=== PATIENT | male | born 1965 | race African-American/Black ===

== ENCOUNTER 2016-06-22 15:47 | Emergency (ER) | payer OTHER ==
[~2016-06-22] VITALS: Ht 177.8 cm; Wt 86.2 kg
[~2016-06-22 15:47] MED LIST: HYDR-971 PO; NAPR550T PO; ORPH100T PO
[2016-06-22 16:06] VITALS: BP 170/105
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
[2016-06-22] MEDS ORDERED: CYCL10TA2 PO (17:01)
[2016-06-22] MEDS ORDERED: IBUPROFEN 800 MG TABLET. PO ONE (17:15)
[2016-06-22] MEDS ORDERED: CYCLOBENZAPRINE 10 MG TABLET. PO ONE (17:15)
--- NOTE | 2016-06-23 06:48 | EKG ---
[facility] [address] [place] [address] Test Date: 2016-06-22 Test Time: 16:14:31 Pat Name: KATHY BORGES Department: Room: Gender: M Toll Operator: : 1965 Requested By: JON ASHLEY Order Number: [id number] Reading MD: Lynda Jones Measurements Intervals [place] Rate: 73 P: 62 NC: 174 QRS: 43 QRSD: 96 T: 36 QT: 372 QTc: 413 Interpretive Statements SINUS RHYTHM NORMAL ECG RI6.01 No previous ECG available for comparison Electronically Signed On 06-23-2016 21:19:36 CDT by Lynda Jones
== END 2016-06-22 17:17 | disposition home or self-care (01) ==
LOC: ER 15:47
DX: S16.1XXA Strain of muscle, fascia and tendon at neck level, initial encounter (principal); R07.89 Other chest pain; M54.6 Pain in thoracic spine; M62.838 Other muscle spasm; V43.42XA Person boarding or alighting a car injured in collision with other type car, initial encounter; Y93.89 Activity, other specified; Y99.8 Other external cause status; Y92.488 Other paved roadways as the place of occurrence of the external cause
CPT/HCPCS: 71020; 72040; 93005; 99284-25

== ENCOUNTER 2017-01-29 08:39 | Emergency (ER) | payer OTHER ==
[~2017-01-29] VITALS: Ht 177.8 cm; Wt 86.2 kg
[~2017-01-29 08:39] MED LIST changes: +CYCL10TA2 PO; +NAPR-682 PO; -NAPR550T PO
--- NOTE | 2017-01-29 08:46 | PHYS DOC ---
Past Medical History Past Medical History: No Pertinent History Past Surgical History: Lumbar Laminectomy Alcohol Use: Occasionally Drug Use: None Adult General Chief Complaint Chief Complaint: CHEST PAIN HPI HPI Patient is a 51 year old male presenting to the emergency department for evaluation of chest pain that has been going on and on for approximately 2 weeks. Patient says it lasts for seconds at a time is sharp left-sided and can radiate towards his left scapula but is not associated with any nausea vomiting shortness of breath or diaphoresis. Pain can come at any time and has happened 2 times so far this morning and happened approximately 2 times last evening. He has exerted himself his usual and he says that this does not make his pain worse but he cannot think of anything that necessarily makes it worse or better possibly drinking alcohol makes it worse. He says that he has hypertension but no diabetes high cholesterol smoking history or family history of ischemic heart disease. Patient is in no obvious distress with normal vital signs. His heart score is equal to 2. Review of Systems Review of Systems Constitutional: Denies fever or chills [] Eyes: Denies change in visual acuity, redness, or eye pain [] HENT: Denies nasal congestion or sore throat [] Respiratory: Denies cough or shortness of breath [] Cardiovascular: + CP GI: Denies abdominal pain, nausea, vomiting, bloody stools or diarrhea [] : Denies dysuria or hematuria [] Musculoskeletal: Denies back pain or joint pain [] Integument: Denies rash or skin lesions [] Neurologic: Denies headache, focal weakness or sensory changes [] Current Medications Current Medications Current Medications Medications (Trade) Dose Ordered Sig/Michelle Start Time Stop Time Status Last Admin Dose Admin Aspirin (Ecotrin) 325 mg 1X ONCE 01/29/17 09:15 01/29/17 09:16 DC 01/29/17 09:09 325 MG Info (Do NOT chart on this entry -- for MONITORING) 1 each PRN DAILY PRN 01/29/17 10:15 01/29/17 11:57 DC Iohexol (Omnipaque 300 Mg/ml) 75 ml 1X ONCE 01/29/17 10:00 01/29/17 10:03 DC 01/29/17 10:19 75 ML Ketorolac Tromethamine (Toradol) 15 mg 1X ONCE 01/29/17 11:00 01/29/17 11:01 DC 01/29/17 11:15 15 MG Multi-Ingredient Mouthwash/Gargle (Gi Cocktail Single Dose) 15 ml 1X ONCE 01/29/17 11:00 01/29/17 11:01 DC 01/29/17 11:14 15 ML Allergies Allergies Allergies Coded Allergies Type Severity Reaction Last Updated Verified hydrocodone Allergy Intermediate Itching 01/29/17 Yes Physical Exam Physical Exam Constitutional: Well developed, well nourished, no acute distress, non-toxic appearance. [] HENT: Normocephalic, atraumatic, bilateral external ears normal, oropharynx moist, no oral exudates, nose normal. [] Eyes: PERRLA, EOMI, conjunctiva normal, no discharge. [] Neck: Normal range of motion, no tenderness, supple, no stridor. [] Cardiovascular:Heart rate regular rhythm, no murmur [] Lungs & Thorax: Bilateral breath sounds clear to auscultation [] Abdomen: Bowel sounds normal, soft, no tenderness, no masses, no pulsatile masses. [] Skin: Warm, dry, no erythema, no rash. [] Back: No tenderness, no CVA tenderness. [] Extremities: No tenderness, no cyanosis, no clubbing, ROM intact, no edema. [] Neurologic: Alert and oriented X 3, normal motor function, normal sensory function, no focal deficits noted. [] Current Patient Data Vital Signs Vital Signs Date Time Temp Pulse Resp B/P (MAP) Pulse Ox O2 Delivery O2 Flow Rate FiO2 01/29/17 11:13 67 16 137/85 (102) 100 Room Air 01/29/17 08:50 98.4 98.4 Lab Values Laboratory Tests Test 01/29/17 08:50 White Blood Count 4.8 x10^3/uL (4.0-11.0) Red Blood Count 4.79 x10^6/uL (4.30-5.70) Hemoglobin 13.7 g/dL (13.0-17.5) Hematocrit 41.7 % (39.0-53.0) Mean Corpuscular Volume 87 fL (79-100) Mean Corpuscular Hemoglobin 29 pg (25-35) Mean Corpuscular Hemoglobin Concent 33 g/dL (31-37) Red Cell Distribution Width 13.0 % (11.5-14.5) Platelet Count 249 x10^3/uL (140-400) Neutrophils (%) (Auto) 74 % (31-73) H Lymphocytes (%) (Auto) 18 % (24-48) L Monocytes (%) (Auto) 6 % (0-9) Eosinophils (%) (Auto) 2 % (0-3) Basophils (%) (Auto) 0 % (0-3) Neutrophils # (Auto) 3.5 x10^3uL (1.8-7.7) Lymphocytes # (Auto) 0.9 x10^3/uL (1.0-4.8) L Monocytes # (Auto) 0.3 x10^3/uL (0.0-1.1) Eosinophils # (Auto) 0.1 x10^3/uL (0.0-0.7) Basophils # (Auto) 0.0 x10^3/uL (0.0-0.2) Prothrombin Time 12.0 SEC (11.7-14.0) Prothrombin Time INR 0.9 (0.8-1.1) PTT 31 SEC (24-38) D-Dimer (Agustina) 0.90 ug/mlFEU (0.00-0.50) H Sodium Level 145 mmol/L (136-145) Potassium Level 3.4 mmol/L (3.5-5.1) L Chloride Level 104 mmol/L (98-107) Carbon Dioxide Level 31 mmol/L (21-32) Anion Gap 10 (6-14) Blood Urea Nitrogen 15 mg/dL (8-26) Creatinine 0.8 mg/dL (0.7-1.3) Estimated GFR (Cockcroft-Gault) 124.3 BUN/Creatinine Ratio 19 (6-20) Glucose Level 112 mg/dL (70-99) H Calcium Level 8.6 mg/dL (8.5-10.1) Magnesium Level 2.2 mg/dL (1.8-2.4) Total Bilirubin 0.6 mg/dL (0.2-1.0) Aspartate Amino Transferase (AST) 45 U/L (15-37) H Alanine Aminotransferase (ALT) 87 U/L (16-63) H Alkaline Phosphatase 108 U/L (46-116) Troponin I Quantitative < 0.017 ng/mL (0.000-0.055) TF-Qks-N-Type Natriuretic Peptide 8 pg/mL (0-124) Total Protein 7.2 g/dL (6.4-8.2) Albumin 4.1 g/dL (3.4-5.0) Albumin/Globulin Ratio 1.3 (1.0-1.7) Laboratory Tests 01/29/17 08:50 Laboratory Tests 01/29/17 08:50 EKG EKG Sinus rhythm at 74 beats per minutes with normal axis no obvious ST elevation or depression and normal T waves Radiology/Procedures Radiology/Procedures AP chest. History: Chest pain AP view was taken of the chest. Lungs are clear. Heart is normal in size without heart failure. There is no pleural effusion. Impression: 1. No acute chest disease. DICTATED and SIGNED BY: RADHA CHAMBERS MD DATE: 01/29/17 0936 One or more of the following individualized dose reduction techniques were utilized for this examination: 1. Automated exposure control 2. Adjustment of the mA and/or kV according to patient size 3. Use of iterative reconstruction technique CT arteriography of the chest with contrast. History: Chest pain CT arteriogram of the chest was done using 75 mL Omnipaque 300 contrast. There is no mediastinal adenopathy or pleural effusion. Visualized portions of the liver and spleen are normal. Adrenal glands are normal. Sagittal and coronal MIP images were reconstructed. The study is negative for evidence of a pulmonary embolus. The lungs are free of infiltrates or nodules. Impression: 1. No infiltrates or nodules noted. 2. Negative for evidence of a pulmonary embolus. DICTATED and SIGNED BY: RADHA CHAMBERS MD DATE: 01/29/17 1027 Course & Med Decision Making Course & Med Decision Making Patient with atypical chest pain however he does have some risk factors. Patient's heart score is equal to 2 and he is safe for discharge in my opinion and patient is agreeable to discharge as well. He was told about his incidental transaminitis and told to stop drinking. Pain did not come back after the Toradol and GI cocktail. 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 Patient aware and agreeable with plan for discharge and verbalized understanding of the need for short-term follow-up in the strict ED return precautions discussed as above. Dragon Disclaimer Dragon Disclaimer This electronic medical record was generated, in whole or in part, using a voice recognition dictation system. Departure Departure Impression: Primary Impression: Chest pain Additional Impression: Transaminitis Disposition: 01 HOME, SELF-CARE Condition: STABLE Referrals: CESAR ALVAREZ MD Patient Instructions: Chest Pain (Nonspecific) Additional Instructions: TAKE A FULL DOSE ASPIRIN DAILY. DO NOT EXERT YOURSELF. FOLLOW WITH A DOWEL MAKER OPAL AND COME BACK TO THE ED SOONER WITH ANY NEW OR WORSENING PAIN , SOA, OR OTHER GENERAL CONCERNS. Scripts Omeprazole Magnesium (PRILOSEC OTC) 20 Mg Tablet.dr 1 TAB PO DAILY, #30 TAB 0 Refills Prov: BRAEDEN REYNOLDS DO 01/29/17 Problem Qualifiers Primary Impression: Chest pain Chest pain type: unspecified Qualified Codes: R07.9 - Chest pain, unspecified BRAEDEN REYNOLDS DO Jan 29, 2017 08:46
--- NOTE | 2017-01-29 09:07 | EKG ---
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
[2017-01-29] MEDS ORDERED: ASPIRIN ENTERIC COATED 325 MG TABLET.DR. PO ONE (09:15)
[2017-01-29 09:31] LABS: BASO % 0 % (0-3); EOS % 2 % (0-3); HEMATOCRIT 41.7 % (39.0-53.0); HEMOGLOBIN 13.7 g/dL (13.0-17.5); LYMPH # 0.9 x10^3/uL (1.0-4.8); LYMPH % 18 % (24-48); MEAN CORPUSCULAR HEMOGLOBIN 29 pg (25-35); MEAN CORPUSCULAR HGB CONC 33 g/dL (31-37); MEAN CORPUSCULAR VOLUME 87 fL (79-100); MONO % 6 % (0-9); NEUT % 74 % (31-73); PLATELET COUNT 249 x10^3/uL (140-400); RED BLOOD COUNT 4.79 x10^6/uL (4.30-5.70); WHITE BLOOD COUNT 4.8 x10^3/uL (4.0-11.0)
[2017-01-29 09:40] LABS: CALCIUM 8.6 mg/dL (8.5-10.1); CREATININE 0.8 mg/dL (0.7-1.3); GFR 124.3; POTASSIUM 3.4 mmol/L (3.5-5.1)
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
[2017-01-29 09:43] LABS: INR 0.9 (0.8-1.1)
[2017-01-29 09:46] LABS: ALBUMIN 4.1 g/dL (3.4-5.0); ALBUMIN/GLOBULIN RATIO 1.3 (1.0-1.7); MAGNESIUM 2.2 mg/dL (1.8-2.4); TOTAL BILIRUBIN 0.6 mg/dL (0.2-1.0); TOTAL PROTEIN 7.2 g/dL (6.4-8.2)
[2017-01-29] MEDS ORDERED: IOHEXOL 300 MG/ML 100ML VIAL. IV ONE (10:00)
[2017-01-29] MEDS ORDERED: CONTRAST GIVEN MC PRN (10:15)
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
[2017-01-29] MEDS ORDERED: LIDO:MAALOX:DONNATAL 1:1:1 15 ML SINGLE DOSE SWSW ONE (11:00)
[2017-01-29] MEDS ORDERED: KETOROLAC 30 MG/ML INJ. IV ONE (11:00)
[2017-01-29] MEDS ORDERED: OMEP20TA63 PO (11:42)
[2017-01-29 11:43] VITALS: BP 144/89
== END 2017-01-29 11:50 | disposition home or self-care (01) ==
LOC: ER 08:39
DX: R07.89 Other chest pain (principal); R74.0 Nonspecific elevation of levels of transaminase and lactic acid dehydrogenase [LDH]; I10 Essential (primary) hypertension; Z88.5 Allergy status to narcotic agent; Z79.82 Long term (current) use of aspirin
CPT/HCPCS: 36415; 71010; 71275; 80053; 83735; 83880; 84484; 85025; 85379; 85610; 85730; 93005; 96374; 99285; J1885; Q9967

== ENCOUNTER → 2017-03-21 | Outpatient (CLI) | payer OTHER | END | disposition home or self-care (01) | LOC: ECHO 12:50 | DX: I49.9 Cardiac arrhythmia, unspecified (principal); R00.0 Tachycardia, unspecified | CPT/HCPCS: 93017; 93350 ==